=== PATIENT | female | born 1990 | race Caucasian/White ===

== ENCOUNTER 2024-09-26 10:35 | Outpatient (CLI) | payer OTHER, SELFPAY | END 2024-09-26 10:36 | disposition home or self-care (01) | DX: R10.9 Unspecified abdominal pain (principal); N39.0 Urinary tract infection, site not specified | CPT/HCPCS: 87086 ==

== ENCOUNTER 2024-09-30 10:30 | Outpatient (CLI) | payer OTHER, SELFPAY | END 2024-09-30 10:31 | disposition home or self-care (01) | LOC: NFLDREF 10-05 13:13 | PROVIDERS: PCP Nurse Practitioner Family; Referring Provider Nurse Practitioner Family; Visit Provider Nurse Practitioner Family | DX: D50.9 Iron deficiency anemia, unspecified (principal); D64.9 Anemia, unspecified; R53.83 Other fatigue | CPT/HCPCS: 80053; 82306; 82607; 82728; 82784; 83540; 83550; 84443; 85025; 85045; 86231; 86258; 86364 ==

== ENCOUNTER 2024-10-26 11:04 | Outpatient (CLI) | payer OTHER, SELFPAY ==
[2024-10-29 05:00] LABS: HPV Source Vaginal
[2024-11-04 17:35] LABS: Pap Test Digital Imaging Done; Pap Test Reviewed by Pathologi Done
== END 2024-10-26 11:05 | disposition home or self-care (01) ==
PROVIDERS: PCP Nurse Practitioner Family; Visit Provider Nurse Practitioner Family
DX: Z12.4 Encounter for screening for malignant neoplasm of cervix (principal); Z11.51 Encounter for screening for human papillomavirus (HPV)
CPT/HCPCS: 85025; 87624; 87625; 88141; 88142; 88175

== ENCOUNTER 2024-11-02 08:39 | Outpatient (CLI) | payer OTHER, SELFPAY ==
--- NOTE | 2024-11-02 10:20 | P.ANES_ITS ---
Anesthesia Charges Start Date/Time Anesthesia Start Date: 11/02/24 Anesthesia Start Time: 09:50 Stop Date/Time Anesthesia Stop Date: 11/02/24 Anesthesia Stop Time: 10:48 Coding CPT Codes CPT Codes: ANES UPR LWR GI NDSC PX - 87743 ([id number]) QK - SOFTBALL COACH 2-4 CNCRNT ANES PROC, QX - APPAREL DESIGNER SVC W/ MED DIRECTION, P3 - PATIENT W/SEVERE SYS DISEASE
--- NOTE | 2024-11-02 10:20 | W.ANESCHARGE ---
Anesthesia Charges Start Date/Time Anesthesia Start Date: 11/02/24 Anesthesia Start Time: 09:50 Stop Date/Time Anesthesia Stop Date: 11/02/24 Anesthesia Stop Time: 10:48 Coding CPT Codes CPT Codes: ANES UPR LWR GI NDSC PX - [id number] ([id number]) QK - ROOFING MACHINE OPERATOR 2-4 CNCRNT ANES PROC, QX - RAILROAD INSPECTOR SVC W/ MED DIRECTION, P3 - PATIENT W/SEVERE SYS DISEASE
--- NOTE | 2024-11-02 10:34 | P.ANES_ITS ---
Anesthesia Charges Start Date/Time Anesthesia Start Date: 11/02/24 Anesthesia Start Time: 09:50 Stop Date/Time Anesthesia Stop Date: 11/02/24 Anesthesia Stop Time: 10:48 Coding CPT Codes CPT Codes: ANES UPR LWR GI NDSC PX - 65412 ([id number]) P3 - PATIENT W/SEVERE SYS DISEASE, QK - LIQUOR BRIDGE OPERATOR 2-4 CNCRNT ANES PROC
--- NOTE | 2024-11-02 10:34 | W.ANESCHARGE ---
Anesthesia Charges Start Date/Time Anesthesia Start Date: 11/02/24 Anesthesia Start Time: 09:50 Stop Date/Time Anesthesia Stop Date: 11/02/24 Anesthesia Stop Time: 10:48 Coding CPT Codes CPT Codes: ANES UPR LWR GI NDSC PX - 38504 ([id number]) P3 - PATIENT W/SEVERE SYS DISEASE, QK - SHREDDER TENDER PEAT 2-4 CNCRNT ANES PROC
== END 2024-11-02 08:40 | disposition home or self-care (01) ==
LOC: OP CLINIC 08:40
PROVIDERS: PCP Nurse Practitioner Family; Visit Provider Internal Medicine
DX: D50.9 Iron deficiency anemia, unspecified (principal)
CPT/HCPCS: 00813; 43239; 45378; 88305; J2704; J3490

== ENCOUNTER 2024-12-21 10:25 | Outpatient (CLI) | payer OTHER, SELFPAY | END 2024-12-21 10:26 | disposition home or self-care (01) | LOC: NFLDREF 12-24 11:59 | PROVIDERS: PCP Nurse Practitioner Family; Referring Provider Nurse Practitioner Family; Visit Provider Nurse Practitioner Family | DX: D50.9 Iron deficiency anemia, unspecified (principal); E55.9 Vitamin D deficiency, unspecified | CPT/HCPCS: 82306; 82607; 82728; 83540; 83550; 85018 ==

== ENCOUNTER 2025-02-08 11:46 | Outpatient (CLI) | payer OTHER, SELFPAY | END 2025-02-08 11:47 | disposition home or self-care (01) | LOC: NFLDREF 02-13 02:38 | PROVIDERS: PCP Nurse Practitioner Family; Referring Provider Nurse Practitioner Family; Visit Provider Nurse Practitioner Family | DX: D50.9 Iron deficiency anemia, unspecified (principal) | CPT/HCPCS: 82607; 82728; 83540; 83550; 85025 ==